=== PATIENT | female | born 1945 | race Hispanic/Latino ===

== ENCOUNTER 2018-09-25 21:58 | Inpatient (IN) | payer OTHER ==
[~2018-09-25] VITALS: Ht 154.9 cm; Wt 86.2 kg
[2018-09-25] MEDS ORDERED: SODIUM CHLORIDE 0.9% 1000ML 1,000 ML IV ONE (22:15)
[2018-09-25 23:04] LABS: BASOPHILS % 0.1 % (0.0-1.0); HEMATOCRIT 35.7 % (34.2-44.1); HEMOGLOBIN 11.9 g/dL (12.0-16.0); LYMPHOCYTES # (AUTO) 0.8 (1.0-3.2); LYMPHOCYTES % 6.2 % (18.0-39.1); MEAN CORPUSCULAR HEMOGLOBIN 30.8 pg (28-32); MEAN CORPUSCULAR HGB CONC 33.3 g/dL (31-35); MEAN CORPUSCULAR VOLUME 92.5 fL (81-99); MONOCYTES # (AUTO) 0.6 (0.2-0.8); MONOCYTES % 4.7 % (4.4-11.3); NEUTROPHILS % 88.6 % (38.7-80.0); PLATELET COUNT 150 x10e3/uL (140-360); RED BLOOD COUNT 3.86 x10e6/uL (3.6-5.1); RED CELL DISTRIBUTION WIDTH 12.4 % (11.7-14.4)
[2018-09-25 23:22] LABS: ALANINE AMINOTRANSFERASE 18 IU/L (0-55); ALBUMIN 3.1 g/dL (3.5-5.0); ALBUMIN/GLOBULIN RATIO 0.8 (0.8-2.0); ALKALINE PHOSPHATASE 65 IU/L (40-150); ANION GAP 13.1 mmol/L (8-16); BLOOD UREA NITROGEN 15 mg/dL (7-26); BUN/CREATININE RATIO 18 (6-25); CALCIUM 9.1 mg/dL (8.4-10.2); CARBON DIOXIDE 22 mmol/L (22-29); CHLORIDE 102 mmol/L (98-107); CREATINE KINASE 48 IU/L (29-168); CREATININE, SERUM 0.83 mg/dL (0.57-1.11); EST GLOMERULAR FILTRATION RATE > 60 ML/MIN (60-); GLUCOSE 164 mg/dL (74-118); POTASSIUM 3.1 mmol/L (3.5-5.1); SODIUM 134 mmol/L (136-145)
[2018-09-25 23:50] LABS: BILIRUBIN,URINE NEGATIVE (NEGATIVE); CLARITY,URINE CLOUDY (CLEAR); COLOR,URINE YELLOW (YELLOW); KETONES,URINE 1+ (NEGATIVE); LEUKOCYTE ESTERASE ,URINE MODERATE (NEGATIVE); NITRITE,URINE POSITIVE (NEGATIVE); PROTEIN,URINE DIPSTICK 2+ (NEGATIVE); URINE UROBILINOGEN 0.2 mg/dL (0.2 - 1)
--- NOTE | 2018-09-26 | Diagnostic Imaging Report ---
EXAMINATION: CHEST SINGLE (PORTABLE) INDICATION: ^FEVER ^[id number] ^2325 ^Y COMPARISON: None FINDINGS: AP view TUBES and LINES: None. LUNGS: Lungs are well inflated. Left basilar hazy opacification. PLEURA: No significant pleural effusion or pneumothorax. HEART AND MEDIASTINUM: The cardiomediastinal silhouette is unremarkable. BONES AND SOFT TISSUES: No acute osseous lesion. Soft tissues are unremarkable. UPPER ABDOMEN: No free air under the diaphragm. IMPRESSION: Lateral left basilar hazy opacification, concerning for pneumonia. Signed by: Dr. Ollie Granados MD on 09/25/2018 11:56 PM
[2018-09-26 00:23] LABS: BACTERIA,URINE MANY /HPF; EPITHELIAL CELLS,URINE FEW /LPF; WBC,URINE (MAN) >50 /HPF (0-5)
[2018-09-26] MEDS ORDERED: POTASSIUM CHLORIDE 20 MEQ TAB CR PO STA (01:08)
[2018-09-26] MEDS ORDERED: SODIUM CHLORIDE 0.9% 1000ML 1,000 ML IV ONE (01:15)
[2018-09-26] MEDS ORDERED: CEFTRIAXONE SOD 1 GM/NS 50 ML 50 ML IV SCH (01:15)
[2018-09-26] MEDS: ALBUTEROL SULF 0.083% NEB SOLN 3 ML NEB NEB SCH ×4 (01:15→12:20)
[2018-09-26] MEDS ORDERED: ONDANSETRON HCL INJ 2MG/ML 2ML 2 MG/ML VIAL IV PRN (01:15)
--- OUTSIDE RECORDS SUMMARY | 2018-09-26 01:21 | XMS REPORT ---
Author Author [facility] Address Unknown Phone Unavailable Care Team Providers Care Business Support Professional Name Role Phone Justine RAYA Unavailable Unavailable Problems This patient has no known problems. Allergies, Adverse Reactions, Alerts This patient has no known allergies or adverse reactions. Medications This patient has no known medications. Results Test Description Test Time Test Comments Text Results Atomic Results Result Comments CHEST SINGLE (PORTABLE) 2018-09-25 23:56:00 [place] [address] Patient Name: JONO GRULLON MR #: [id number] : 1945 Age/Sex: 73/F Req #: [id number] Adm Physician: Ordered by: STEWART RAYA MD Report #: [id number] Location: ER Room/Bed: Procedure: [id number] DX/CHEST SINGLE (PORTABLE) Exam Date: 09/25/18 Exam Time: 2324 REPORT STATUS: Signed EXAMINATION: CHEST SINGLE (PORTABLE) I NDICATION: FEVER [id number] 2325 Y COMPARISON: None FINDINGS: AP view TUBES and LINES: None. LUNGS: Lungs are well inflated. Left basilar hazy opacification. PLEURA: No significant pleural effusion or pneumothorax. HEART AND MEDIASTINUM: The cardiomediastinal silhouette is unremarkable. BONES AND SOFT TISSUES: No acute osseous lesion. Soft tissues are unremarkable. UPPER ABDOMEN: No free air under the diaphragm. IMPRESSION: Lateral left basilar hazy opacification, concerning for pneumonia. Signed by: Dr. Ollie Johnson MD on 09/25/2018 11:56 PM Dictated By: OLLIE JOHNSON MD Transcribed By: OJVANNY on 09/25/187 COPY TO: STEWART RAYA MD
[2018-09-26] MEDS: AZITHROMYCIN 500MG/NS 250 ML 250 ML IV SCH (02:52)
--- NOTE | 2018-09-26 03:45 | NUR ---
rapid response initiated due to patients rapid decline in neurological status and increase of temperature, rectal temp of 104 noted, tachycardia of 126, alert x1 and confused. daughter at bedside, dr phan ordered acetaminophen 1000mg iv x 1 and a stat abg. blood glucose check done within parameters, respiratory at bedside
[2018-09-26] MEDS ORDERED: ACETAMINOPHEN 1000 MG/100 ML IV STA (03:55)
[2018-09-26] MEDS ORDERED: ACETAMINOPHEN 1000 MG/100 ML 100 ML IV ONE (03:57)
[2018-09-26] MEDS: SODIUM CHLORIDE 0.9% 1000ML 1,000 ML IV SCH ×2 (04:15→12:00)
--- NOTE | 2018-09-26 04:31 | NUR ---
patients is improving and now able to follow commands, patient is now more alert and making needs known.
[2018-09-26 04:34] LABS: ABG HCO3 16 mmol/L (23-28); ABG PCO2 24 mmHg (41-51); ABG PH 7.44 (7.31-7.41); ABG PO2 67 mmHg (80-105)
--- NOTE | 2018-09-26 06:45 | NUR ---
report given in full to erin henderson rn
[2018-09-26] MEDS: IPRATROPIUM BROMIDE 0.02% 2.5 ML NEB NEB SCH ×2 (07:00→12:20)
--- NOTE | 2018-09-26 07:12 | NUR ---
RECEIVED PATIENT A/O X 3. ANSWERING QUESTION APPROPRIATELY. DENIES ANY COMPLAINTS. NORMAL SALINE INFUSING AT 125CC/HR VIA RIGHT 20 GUAGE AC. LIMB ALERT TO LEFT ARM. DAUGHTER AT BEDSIDE
[2018-09-26] MEDS ORDERED: SODIUM CHLORIDE 0.9% 1000ML 1,000 ML IV SCH (07:15)
[2018-09-26] MEDS ORDERED: SODIUM CHLORIDE 0.9% 1000ML 1,000 ML ONE (07:15)
--- NOTE | 2018-09-26 07:22 | NUR ---
LAB CALLED. PATIENT SCHEDULED FOR 6 AM CARDIACS
--- NOTE | 2018-09-26 07:40 | NUR ---
[employer] DRA[employer]ING TEACHER AT BEDSIDE OBTAINING 2ND SET OF CARDIAC ENZYMES
--- NOTE | 2018-09-26 08:14 | NUR ---
PATIENT ON 4TH LITER NORMAL SALINE. PRESSURE 79/40, HR 90. AFEBRILE
--- NOTE | 2018-09-26 08:15 | NUR ---
LAB TO COME DRAW LACTIC
[2018-09-26 08:23] LABS: CREATINE KINASE MB 6.7 ng/mL (0-5.0)
--- NOTE | 2018-09-26 08:51 | NUR ---
NOTIFIED MORGAN ESTRADA TROP I 3.
--- NOTE | 2018-09-26 08:52 | NUR ---
DR. RICH NOTIFIED FOR CARDIAC ENZYMES AND HYPOTENTION
--- NOTE | 2018-09-26 08:57 | NUR ---
REPEAT EKG COMPLETED. GIVEN TO DR. AUGUST
--- NOTE | 2018-09-26 09:13 | NUR ---
DR. COWART CALLED, LEFT MESSAGE. DR. RICH STATED, "HE IS BACK TODAY"
--- NOTE | 2018-09-26 09:21 | NUR ---
SPOKE WITH DR. COWART. HE IS AWARE OF BLOOD PRESSURE AND ELEVATED CARDIAC ENZYMYES. NO MEDICATION ORDERS. TELEPHONE ORDER FOR STAT ECHO, CONSULT JEROUDI AND PICC LINE PLACEMENT
--- NOTE | 2018-09-26 09:23 | NUR ---
SPOKE WITH SARATH RDA TO GET STAT ECHO
--- NOTE | 2018-09-26 09:26 | NUR ---
SPOKE WITH DR. Malika HERRERA REGARDING ELEVATED CARDIAC ENZMYES AND AND HYPOTENTION.
--- NOTE | 2018-09-26 09:45 | NUR ---
NOTIFIED RADIOLOGY TO CALL OUT PICC TEAM
--- NOTE | 2018-09-26 09:47 | NUR ---
MALCOLM WALL N.P. AT BEDSIDE FOR DR. Malika HERRERA. HE IS EVALUATING PATIENT. PICC CONSENT SIGNED
--- NOTE | 2018-09-26 10:01 | NUR ---
SPANISH MOSS PICKER AT BEDSIDE HR 87, BP 85/52 (83). FAMILY CONTINUALLY AT BEDSIDE UPDATED ON PATIENTS PLAN OF CARE
[2018-09-26 10:18] LABS: CHOL/HDL RATIO 2.7 (3.0-3.6)
--- NOTE | 2018-09-26 10:30 | NUR ---
NOTIFIED DR. COWART REGARDING CONTINUED HYPOTENTION, MAY NOW IN THE 50'S. ORDERS FOR LEVOPHED TO KEEP SYST >90. PATIENT AWAITING PICC
[2018-09-26 10:38] LABS: THYROID STIMULATING HORMONE 0.7 uIU/mL (0.350-4.940)
[2018-09-26] MEDS ORDERED: NOREPINEPHRINE 8 MG/D5W 250 ML 250 ML ONE (10:39)
[2018-09-26] MEDS: NOREPINEPHRINE INJ 4MG/4ML 8 MG in DEXTROSE 5% 250ML 250 ML IV SCH (10:45)
--- NOTE | 2018-09-26 11:00 | NUR ---
INCREASED LEVOPHED 7MCG/MIN (13.1ML) BP 82/48(60)
[2018-09-26] MEDS ORDERED: CETIRIZINE HCL10 MG PO (11:38)
[2018-09-26] MEDS ORDERED: FLUCONAZOLE150 MG (11:38)
[2018-09-26] MEDS ORDERED: LOSARTAN POTAS100 MG PO (11:38)
[2018-09-26] MEDS ORDERED: TAMOXIFEN CITRA20 MG PO (11:38)
[2018-09-26] MEDS ORDERED: CARVEDILOL3.125 MG PO (11:38)
[2018-09-26] MEDS ORDERED: OMEPRAZOLE20 MG PO (11:38)
[2018-09-26] MEDS ORDERED: CLOTRIMAZOLE-BE15 GM (11:38)
[2018-09-26] MEDS ORDERED: OXYBUTYNIN CHLO10 MG PO (11:38)
[2018-09-26] MEDS ORDERED: METRONIDAZOLE500 MG PO (11:38)
[2018-09-26] MEDS ORDERED: ATORVASTATIN CA20 MG PO (11:38)
--- NOTE | 2018-09-26 11:53 | NUR ---
PATIENT WAS ABLE TO STAND UP. C/O OF DIZZINESS. TRANSFERED TO HOSPITAL BED. CHANGED DIAPER, SATURATED WITH URINE. NO SKIN BREAKDOWN ONLY ABLE TO TAKE BP ON RIGHT ARM. RIGHT AC PIV SITE WITH BLOOD
--- NOTE | 2018-09-26 13:00 | NUR ---
BP 105/58 REDUCED LEVOPHED TO 5MCG/MIN
--- NOTE | 2018-09-26 13:18 | NUR ---
DR. COWART IN EMERGENCY ROOM TO EVALUATE PATIENT
[2018-09-26] MEDS ORDERED: VANCOMYCIN 1GM/NS 250 ML 250 ML IV ONE (13:45)
[2018-09-26] MEDS ORDERED: METRONIDAZOLE 500MG/NS 100ML 100 ML IV SCH (14:00)
--- NOTE | 2018-09-26 14:23 | NUR ---
PICC TEAM NURSE AT BEDSIDE AT THIS TIME, INFORMED PRIMARY NURSE MORGAN ESTRADA.
--- NOTE | 2018-09-26 14:26 | NUR ---
BP 111/56. DECREASED LEVOPHED TO 3MCG/MIN (5.6 ML)
--- NOTE | 2018-09-26 15:18 | NUR ---
BP 120/64. CUFF ON LEFT LEG LEVOPHED REDUCED TO 2MCG/MIN (3.7 ML)
--- NOTE | 2018-09-26 15:18 | NUR ---
PICC COMPLETED. PLACED IN RIGHT UPPER ARM. BP PLACED ON LEFT LEG. BP 120/64
--- NOTE | 2018-09-26 15:45 | NUR ---
RADIOLOGY AT BEDSIDE AT THIS TIME FOR PICC LINE PLACEMENT CXR AT THIS TIME.
--- NOTE | 2018-09-26 15:53 | Diagnostic Imaging Report ---
Examination: Single AP view of the chest. COMPARISON: Earlier 09/25/2018 INDICATION: PICC placement DISCUSSION: Interval placement of a right upper extremity PICC. The tip terminates over the mid superior vena cava. Patchy opacity in the left lung base is unchanged. No new consolidations. Stable cardiomediastinal contour. No acute osseous abnormality. IMPRESSION: Interval placement of right upper extremity PICC, appropriately positioned as described. Otherwise no significant interval change relative to 09/25/2018. Signed by: Dr. Curtis Saunders M.D. on 09/26/2018 3:49 PM
--- NOTE | 2018-09-26 16:10 | NUR ---
LEVOPHED DRIP TITRATED TO 1 MCG/MIN 1.9 ML/HR AT THIS TIME.
--- NOTE | 2018-09-26 16:15 | NUR ---
PICC LINE OKAY TO USE PER RADIOLOGY POST PROCEDURE X-RAY REPORT, STARTING ABX VIA LINE. SEE eMAR.
--- NOTE | 2018-09-26 16:30 | NUR ---
BP 122/59. CUFF ON LEFT LEG LEVOPHED OFF
--- NOTE | 2018-09-26 16:50 | Consultation ---
DATE OF CONSULTATION: REASON FOR CONSULTATION: Elevated troponin. CHIEF COMPLAINT: Fevers, chills, and cough. HISTORY OF PRESENT ILLNESS: This is a 73-year-old female with history of hypertension, hyperlipidemia, uterine prolapse, and breast CA. The patient presents to [facility] ER with apparent complaints of fevers, chills, cough, and temperature over 104. However, also was noted the patient was hypotensive on admission, has received fluids from several liters of fluid. Labs were noted, which showed that the troponin is 3.9, so Cardiology was consulted. The patient is seen in the ER with family at the bedside. The patient reports cough, chills, and fever for the past several days. Denies any sick contacts. The patient denies any chest pains, any shortness of breath. EKG was noted, no changes suggestive of acute event. PAST MEDICAL HISTORY: Hypertension, hyperlipidemia, uterine prolapse, and breast CA. PAST SURGICAL HISTORY: Cholecystectomy and left lumpectomy. SOCIAL HISTORY: She is single. She is a retired accounts receivable department. She denies any alcohol or tobacco use. FAMILY HISTORY: Mother in the age of 72, apparently with a history of Parkinson. Father in his 80s, unknown history. She has one sister, who is alive, apparently she has a history of atrial fibrillation. HOME MEDICATIONS: Include losartan 100 mg once a day, atorvastatin daily, oxybutynin 10 mg daily, fish oil, and tamoxifen. ALLERGIES: NO KNOWN ALLERGIES. REVIEW OF SYSTEMS: GENERAL: Denies any weight changes. However, positive for fatigue, weakness, fevers, and chills. SKIN LADD: No rashes or sores reported. HEENT: Denies any nausea, vomiting, vision changes, blurred vision, double vision, or epistaxis. Positive for sore throat. CARDIAC: Denies any chest pains or shortness of breath; however, positive for dyspnea on exertion. Denies any orthopnea, PND, or any lower extremity edema. RESPIRATORY: Positive for cough and secretions. Denies any hemoptysis. GI: Reports poor appetite past several days. Denies any nausea, vomiting, diarrhea, constipation, melena, or hematochezia. URINARY: Positive for frequency and urgency. Denies any hematuria or any dysuria. VASCULAR: Denies any lower extremity edema. MUSCULOSKELETAL: Denies any muscle weakness; however, positive for generalized joint pains. NEUROLOGIC: Denies any tremors, weakness, paralysis, fainting, blackouts, or seizures. HEMATOLOGY: Denies any bruising or anemia. ENDOCRINE: Denies any heat or cold intolerance, any polyuria, polydipsia, or polyphagia. PHYSICAL EXAMINATION: VITAL SIGNS: Height 62 inches, weight 165 pounds, temperature 98.4, pulse 95, respiratory rate 18, blood pressure 85/49, and pulse ox 100% on 2 L nasal cannula. GENERAL: Appears stated age, reliable informant, and in no obvious distress. SKIN LADD: No rashes or bruises noted. HEENT: Normocephalic. Pupils are equal and reactive. Extraocular movements are intact. Trachea midline. No JVD. No thyromegaly. Oral mucosa pink. HEART: Regular rate and rhythm. No murmurs, gallops, or clicks. PMI 4th 5th intercostal space. LUNGS: Rhonchi noted in the left lung field. Good airway entry. ABDOMEN: Soft, nontender, and nondistended. No organomegaly noted. MUSCULOSKELETAL: Good muscle strength throughout. VASCULAR: +2 bilateral radial pulses, +1 DP, PT pulses bilaterally. NEUROLOGIC: Cranial nerves II through XII seem intact. LABORATORY DATA: Sodium 134, potassium 3.1, chloride 102, BUN 15, and creatinine 0.8. Troponin initial 0.008, 3.9. Hematology; white count 13.5, hemoglobin 11, hematocrit 35, and platelets 150. UA showing moderate leukocyte esterase, white count greater than 50,000 and many bacteria. Chest x-ray showing hazy opacifications. EKG showing normal sinus rhythm. ASSESSMENT AND PLAN: 1. Severe sepsis. 2. Troponin leak secondary to severe sepsis. 3. Hyperlipidemia. 4. History of hypertension. 5. History of breast cancer, status post lumpectomy. PLAN: 1. The patient presents with cough, fevers, chills, and temperature of 104 per patient on x-ray with pneumonia, and the patient with severe sepsis. Troponin leak secondary to sepsis. The patient denies any anginal symptoms. EKG without changes suggestive of acute event. 2. We will go ahead and get an echo to evaluate heart function and structure. 3. We will check a TSH and lipid panel. 4. Antibiotics. The patient has been initiated on antibiotic therapy and receiving fluids secondary to her hypotension. 5. We will continue to monitor the patient and adjust cardiac therapy as clinical course dictates. Long discussion with the patient and family members at bedside. Dictated by Curtis Porter, JEM Tahir Charlton MD DC/AIDAN /[id number]
[2018-09-26 16:51] LABS: CREATINE KINASE MB 12.9 ng/mL (0-5.0)
--- NOTE | 2018-09-26 16:57 | NUR ---
NOTIFIED PER LAB. TROPONIN 2.9
[2018-09-26] MEDS ORDERED: ENOXAPARIN SOD INJ 40 MG/0.4 ML SYR SC SCH (17:00)
--- NOTE | 2018-09-26 17:30 | NUR ---
SPOKE WITH DR. COWART. HE IS AWARE OF PATIENT BEING OFF LEVOPHED, INCREASING TEMP AND BP AND 3RD SET OF CARDIAC ENZMYES. BP 149/70, NO TREATMENT TROPONIN 2.9, AND AWARE THEY ARE COMING DOWN SINCE 2ND SET. TEMP 100.1, GIVE TYLENOL TRANSFER LEVEL CARE FROM ICU TO MED/TELE
[2018-09-26] MEDS: ACETAMINOPHEN 325 MG TAB PO PRN (17:55)
[2018-09-26] MEDS: CEFEPIME 1GM/NS 0.9% 50 ML 50 ML IV SCH (17:55)
[2018-09-26] MEDS: ALBUTEROL/IPRATROPIUM 3 ML NEB NEB SCH ×2 (18:00→21:00)
--- NOTE | 2018-09-26 18:40 | NUR ---
MULTIPLE DIAPER CHANGES. PATIENT AMBULATED TO BATHROOM WITH ASSIST. TRIED TO HOLD OFF HAVING A BOWEL MOVEMENT TILL FAMILY ARRIVED. SHE IS NOW INCONTINENT OF STOOL
--- NOTE | 2018-09-26 19:00 | NUR ---
BEDSIDE REPORT TO MUKESH Quigley
[2018-09-26] MEDS: ATORVASTATIN 20 MG TAB PO SCH (20:18)
[2018-09-26] MEDS: METRONIDAZOLE 500MG/NS 100ML 100 ML IV SCH (20:18)
--- NOTE | 2018-09-26 22:21 | NUR ---
SPOKE TO DR COWART REGARDING PATIENTS CURRENT BP OF 86/52, DISCUSSED IN DETAIL PATIENTS MEDICAL COURSE THROUGHT DAY, PER PREVIOUS RN AND DAUGTHER AT BEDSIDE PATIENT ATE DINNER AND HAD GOOD FLUID AND FOOD INTAKE ALL DAY. THIS RN EXPRESSED CONCERN IN BP. RECIEVED ORDER FOR 1L BOLUS OF LACTATED RINGERS AND MAY TRANSFER TO FLOOR IF SBP IS ABOVE 100. CALL BACK MD IF INTERVENTIONS FAIL
[2018-09-26] MEDS ORDERED: LACTATED RINGER'S 1,000 ML IV ONE (22:30)
[2018-09-27] VITALS (23 sets, daily range): BP systolic 87–153; BP diastolic 54–87
[2018-09-27] MEDS: CEFEPIME 1GM/NS 0.9% 50 ML 50 ML IV SCH ×4 (02:15→21:32)
[2018-09-27] MEDS: AZITHROMYCIN 500MG/NS 250 ML 250 ML IV SCH (02:42)
[2018-09-27 05:05] LABS: BASOPHILS % 0.1 % (0.0-1.0); EOSINOPHILS % 0.1 % (0.0-6.0); HEMATOCRIT 27.2 % (34.2-44.1); HEMOGLOBIN 8.8 g/dL (12.0-16.0); LYMPHOCYTES # (AUTO) 1.2 (1.0-3.2); LYMPHOCYTES % 13.6 % (18.0-39.1); MEAN CORPUSCULAR HEMOGLOBIN 30.7 pg (28-32); MEAN CORPUSCULAR HGB CONC 32.4 g/dL (31-35); MEAN CORPUSCULAR VOLUME 94.8 fL (81-99); MONOCYTES # (AUTO) 0.5 (0.2-0.8); MONOCYTES % 5.7 % (4.4-11.3); NEUTROPHILS # (AUTO) 7.2 (2.1-6.9); NEUTROPHILS % 79.9 % (38.7-80.0); PLATELET COUNT 95 x10e3/uL (140-360); RED BLOOD COUNT 2.87 x10e6/uL (3.6-5.1)
[2018-09-27] MEDS: METRONIDAZOLE 500MG/NS 100ML 100 ML IV SCH ×4 (05:24→22:10)
[2018-09-27 05:39] LABS: ANION GAP 8.4 mmol/L (8-16); BLOOD UREA NITROGEN 11 mg/dL (7-26); BUN/CREATININE RATIO 17 (6-25); CALCIUM 7.7 mg/dL (8.4-10.2); CARBON DIOXIDE 18 mmol/L (22-29); CHLORIDE 112 mmol/L (98-107); CHOL/HDL RATIO 3.4 (3.0-3.6); CHOLESTEROL 84 MD/DL (0-199); CREATININE, SERUM 0.63 mg/dL (0.57-1.11); EST GLOMERULAR FILTRATION RATE > 60 ML/MIN (60-); GLUCOSE 99 mg/dL (74-118); HDL CHOLESTEROL 25 MG/DL (40-60); LDL CHOLESTEROL 42 MG/DL (60-130); POTASSIUM 3.4 mmol/L (3.5-5.1); SODIUM 135 mmol/L (136-145); TRIGLYCERIDES 85 MG/DL (0-149)
--- NOTE | 2018-09-27 05:51 | Diagnostic Imaging Report ---
EXAMINATION: CHEST SINGLE (PORTABLE) INDICATION: ^PNA ^[id number] ^0420 COMPARISON: 09/26/2018 FINDINGS: AP view TUBES and LINES: Stable right PICC. LUNGS: Limited by low lung volumes and body habitus. Increased vascular congestion and perihilar opacities. PLEURA: No significant pleural effusion or pneumothorax. HEART AND MEDIASTINUM: The cardiomediastinal silhouette is unremarkable. BONES AND SOFT TISSUES: No acute osseous lesion. Soft tissues are unremarkable. UPPER ABDOMEN: No free air under the diaphragm. IMPRESSION: Limited as above. Increased central vascular congestion, accentuated by low lung volumes. Increased right infrahilar opacification, likely atelectasis. Underlying pneumonia cannot be excluded. Signed by: Dr. Ollie Granados MD on 09/27/2018 5:47 AM
[2018-09-27] MEDS ORDERED: SODIUM CHLORIDE 0.9% 1000ML 1,000 ML IV SCH (07:15)
[2018-09-27] MEDS: ALBUTEROL/IPRATROPIUM 3 ML NEB NEB SCH ×4 (07:30→18:55)
[2018-09-27] MEDS ORDERED: TAMOXIFEN CITRATE 20 MG PO SCH (09:00)
[2018-09-27] MEDS: TAMOXIFEN CITRATE 10 MG TAB PO SCH (09:20)
[2018-09-27] MEDS: NOREPINEPHRINE INJ 4MG/4ML 8 MG in DEXTROSE 5% 250ML 250 ML IV SCH (09:56)
[2018-09-27] MEDS ORDERED: POTASSIUM CHLORIDE 20 MEQ TAB CR PO STA (10:36)
[2018-09-27] MEDS ORDERED: MAGNESIUM SULFATE 2GM/50ML 50 ML IV ONE (10:45)
[2018-09-27] MEDS ORDERED: POTASSIUM CHLORIDE 10MEQ EA PO NR (11:00)
[2018-09-27] MEDS: FAMOTIDINE 20 MG TAB PO SCH (11:45)
--- NOTE | 2018-09-27 14:13 | NUR ---
WOUND CARE PUP SCREEN Tai Score: 16 PUP: MODERATE LOS: 10 HRS Age: 73 VISCO Mattress HOB < / = 45 Degrees Patient Position: Patient able & demonstrated repositioning self. PATIENT VISIT / SKIN CHECK: No Pressure Ulcers Identified. RECOMMENDATION: - Continue Moderate PUP Addendum: 09/27/18 at 1413 by Garland Moseley RN Amended: Links added.
[2018-09-27] MEDS ORDERED: POTASSIUM CHLORIDE 20 MEQ TAB CR PO NR (14:30)
[2018-09-27] MEDS: ACETAMINOPHEN 325 MG TAB PO PRN (15:27)
[2018-09-27] MEDS: ATORVASTATIN 20 MG TAB PO SCH (20:43)
--- NOTE | 2018-09-27 21:16 | NUR ---
Report given to Louisa MORA. Patient transferred to 206 with all belongings at 2105 via WC with magy Alfredo. No acute signs of distress noted. Daughter at bedside.
[2018-09-27] MEDS ORDERED: SODIUM CHLORIDE 0.9% 250ML 250 ML ONE (21:25)
[2018-09-28] VITALS (8 sets, daily range): BP systolic 122–164; BP diastolic 59–78
[2018-09-28] MEDS: AZITHROMYCIN 500MG/NS 250 ML 250 ML IV SCH (01:21)
[2018-09-28] MEDS: ACETAMINOPHEN 325 MG TAB PO PRN ×2 (01:21→17:03)
[2018-09-28 04:59] LABS: BASOPHILS % 0.2 % (0.0-1.0); EOSINOPHILS % 0.3 % (0.0-6.0); HEMATOCRIT 27.4 % (34.2-44.1); HEMOGLOBIN 9.1 g/dL (12.0-16.0); LYMPHOCYTES # (AUTO) 0.9 (1.0-3.2); LYMPHOCYTES % 14.7 % (18.0-39.1); MEAN CORPUSCULAR HEMOGLOBIN 30.6 pg (28-32); MEAN CORPUSCULAR HGB CONC 33.2 g/dL (31-35); MEAN CORPUSCULAR VOLUME 92.3 fL (81-99); MONOCYTES # (AUTO) 0.5 (0.2-0.8); MONOCYTES % 7.9 % (4.4-11.3); NEUTROPHILS # (AUTO) 4.5 (2.1-6.9); NEUTROPHILS % 76.2 % (38.7-80.0); PLATELET COUNT 112 x10e3/uL (140-360); RED BLOOD COUNT 2.97 x10e6/uL (3.6-5.1); RED CELL DISTRIBUTION WIDTH 12.7 % (11.7-14.4)
[2018-09-28 05:13] LABS: INR 1.01; PROTHROMBIN TIME 13.8 seconds (11.9-14.5)
[2018-09-28] MEDS: CEFEPIME 1GM/NS 0.9% 50 ML 50 ML IV SCH (05:17)
[2018-09-28 05:24] LABS: ALANINE AMINOTRANSFERASE 17 IU/L (0-55); ALBUMIN 2.1 g/dL (3.5-5.0); ALBUMIN/GLOBULIN RATIO 0.7 (0.8-2.0); ALKALINE PHOSPHATASE 58 IU/L (40-150); ANION GAP 7.4 mmol/L (8-16); BLOOD UREA NITROGEN 7 mg/dL (7-26); BUN/CREATININE RATIO 11 (6-25); CARBON DIOXIDE 21 mmol/L (22-29); CHLORIDE 111 mmol/L (98-107); CREATININE, SERUM 0.61 mg/dL (0.57-1.11); EST GLOMERULAR FILTRATION RATE > 60 ML/MIN (60-); GLUCOSE 106 mg/dL (74-118); POTASSIUM 3.4 mmol/L (3.5-5.1); SODIUM 136 mmol/L (136-145)
[2018-09-28] MEDS: ALBUTEROL/IPRATROPIUM 3 ML NEB NEB SCH ×4 (06:00→20:05)
[2018-09-28] MEDS: METRONIDAZOLE 500MG/NS 100ML 100 ML IV SCH (06:13)
[2018-09-28] MEDS: TAMOXIFEN CITRATE 10 MG TAB PO SCH (08:31)
[2018-09-28] MEDS: FAMOTIDINE 20 MG TAB PO SCH (08:31)
[2018-09-28] MEDS ORDERED: POTASSIUM CHLORIDE 20 MEQ TAB CR PO NR (09:30)
[2018-09-28] MEDS ORDERED: ASPIRIN 325 MG TAB PO SCH (11:00)
[2018-09-28] MEDS ORDERED: POTASSIUM CHLORIDE 20 MEQ TAB CR PO SCH (11:30)
--- NOTE | 2018-09-28 11:43 | Diagnostic Imaging Report ---
Exam: KUB - 2 views Clinical History: Nausea. Comparison: None. Findings: Nonobstructive bowel gas pattern. No evidence of free intraperitoneal air. No evidence of abnormal calcification. No acute bony abnormality. Mild degenerative changes of the lumbar spine. Pessary device is noted. Impression: No acute radiographic abnormality. Signed by: Dr. Vazquez Cervantes MD on 09/28/2018 11:40 AM
[2018-09-28] MEDS: LACTOBACILLUS ACIDOPHILUS CAPSULE PO SCH ×3 (11:53→20:48)
[2018-09-28] MEDS ORDERED: ASPIRIN 81 MG ENTERIC COATED PO SCH (12:00)
[2018-09-28] MEDS: CEFTRIAXONE SOD 1 GM/NS 50 ML 50 ML IV SCH (12:01)
[2018-09-28] MEDS ORDERED: ONDANSETRON HCL 4 MG ORAL DISINTEGRATING TAB PO PRN (13:30)
--- NOTE | 2018-09-28 19:00 | NUR ---
Received patient from day nurse, patient alert and oriented x3. patient made aware of the plan of care for the night, patient verbalized understanding. patient is currently stable will continue to monitor.
[2018-09-28] MEDS: ATORVASTATIN 20 MG TAB PO SCH (20:48)
[2018-09-29] VITALS (7 sets, daily range): BP systolic 151–171; BP diastolic 71–97
[2018-09-29 05:00] LABS: BASOPHILS % 0.2 % (0.0-1.0); EOSINOPHILS % 0.7 % (0.0-6.0); HEMOGLOBIN 9.7 g/dL (12.0-16.0); LYMPHOCYTES # (AUTO) 0.9 (1.0-3.2); MEAN CORPUSCULAR HEMOGLOBIN 30.1 pg (28-32); MEAN CORPUSCULAR HGB CONC 33.4 g/dL (31-35); MEAN CORPUSCULAR VOLUME 90.1 fL (81-99); MONOCYTES # (AUTO) 0.4 (0.2-0.8); MONOCYTES % 9.2 % (4.4-11.3); NEUTROPHILS # (AUTO) 3.1 (2.1-6.9); NEUTROPHILS % 68.2 % (38.7-80.0); PLATELET COUNT 128 x10e3/uL (140-360); RED BLOOD COUNT 3.22 x10e6/uL (3.6-5.1); RED CELL DISTRIBUTION WIDTH 12.5 % (11.7-14.4)
[2018-09-29 05:30] LABS: ALANINE AMINOTRANSFERASE 21 IU/L (0-55); ALBUMIN 2.3 g/dL (3.5-5.0); ALKALINE PHOSPHATASE 57 IU/L (40-150); ANION GAP 9.5 mmol/L (8-16); BILIRUBIN,DIRECT 0.3 mg/dL (0.0-0.5); BLOOD UREA NITROGEN 6 mg/dL (7-26); BUN/CREATININE RATIO 10 (6-25); CALCIUM 8.2 mg/dL (8.4-10.2); CARBON DIOXIDE 24 mmol/L (22-29); CHLORIDE 107 mmol/L (98-107); CREATININE, SERUM 0.59 mg/dL (0.57-1.11); EST GLOMERULAR FILTRATION RATE > 60 ML/MIN (60-); GLUCOSE 98 mg/dL (74-118); LIPASE 19 U/L (8-78); POTASSIUM 3.5 mmol/L (3.5-5.1); SODIUM 137 mmol/L (136-145)
[2018-09-29] MEDS: ALBUTEROL/IPRATROPIUM 3 ML NEB NEB SCH (06:59)
[2018-09-29] MEDS: LACTOBACILLUS ACIDOPHILUS CAPSULE PO SCH ×3 (09:00→21:00)
[2018-09-29] MEDS: FAMOTIDINE 20 MG TAB PO SCH (09:39)
[2018-09-29] MEDS: TAMOXIFEN CITRATE 10 MG TAB PO SCH (09:39)
--- NOTE | 2018-09-29 11:58 | NUR ---
IMM letter delivered and explained to pt. She verbalized understanding. Signed copy placed in chart. Copy to pt's transition of care folder. CM business card left for any questions/concerns. CM information also written on white board.
[2018-09-29] MEDS: CEFTRIAXONE SOD 1 GM/NS 50 ML 50 ML IV SCH (12:09)
[2018-09-29] MEDS ORDERED: ALBUTEROL/IPRATROPIUM 3 ML NEB NEB PRN (12:45)
[2018-09-29] MEDS ORDERED: LEVOFLOXACIN 500 MG TAB PO SCH (12:45)
[2018-09-29] MEDS ORDERED: POTASSIUM CHLORIDE 20 MEQ TAB CR PO ONE (16:00)
[2018-09-29] MEDS: CARVEDILOL 3.125 MG TAB PO SCH (17:11)
--- NOTE | 2018-09-29 19:49 | NUR ---
Received patient lying in bed in no acute distress, patient is alert and oriented, safety and fall precautions mantained as per hospital protocol: bed in lowest position and locked, needed items beside bed and call brown placed close to patient, patient instructed to use it to call nurses for any assisstance needed patient verbalized understanding.
[2018-09-29] MEDS: ATORVASTATIN 20 MG TAB PO SCH (22:00)
[2018-09-30 00:16] VITALS: BP 167/83
[2018-09-30 05:56] VITALS: BP 170/80
--- NOTE | 2018-09-30 06:25 | NUR ---
Made Dr. Everett aware of patients bp and ordered to administer morning bp meds now.
[2018-09-30] MEDS: CARVEDILOL 3.125 MG TAB PO SCH (06:28)
--- NOTE | 2018-09-30 06:45 | NUR ---
Patient condition throughout the night was stable, patient endorsed to next shift for continuity of care.
[2018-09-30 08:00] VITALS: BP 171/82
[2018-09-30] MEDS: TAMOXIFEN CITRATE 10 MG TAB PO SCH (08:46)
[2018-09-30 08:47] VITALS: BP 171/82
[2018-09-30] MEDS: LACTOBACILLUS ACIDOPHILUS CAPSULE PO SCH (08:49)
[2018-09-30] MEDS ORDERED: LORATADINE 10 MG TAB PO SCH (09:00)
[2018-09-30] MEDS ORDERED: NON-FORMULARY MEDICATION (Cetirizine Hcl 10 MG) PO SCH (09:00)
[2018-09-30] MEDS ORDERED: CARVEDILOL 3.125 MG TAB PO SCH (09:00)
[2018-09-30] MEDS ORDERED: LOSARTAN POTASSIUM 100 MG TAB PO SCH (09:00)
[2018-09-30] MEDS ORDERED: ASPIRIN 81 MG CHEW TAB PO SCH (09:00)
[2018-09-30] MEDS ORDERED: OXYBUTYNIN CHLORIDE XL 5 MG TAB PO SCH ×2 (09:00→21:00)
--- NOTE | 2018-09-30 11:30 | NUR ---
Patient's blood pressure is 190/89. Contacting Dr. Saravia contacted.
--- NOTE | 2018-09-30 11:56 | NUR ---
Dr. Saravia here to see the patient. Made him aware of elevated blood pressure continuing from this morning. Orders received. Per Dr. Saravia stated blood pressure must be lower than 170 SBP in order to discharge home.
[2018-09-30 12:00] VITALS: BP 190/89
[2018-09-30] MEDS ORDERED: NIFEDIPINE CR 30 MG TAB PO SCH (12:15)
--- NOTE | 2018-09-30 12:32 | NUR ---
Procardia administered at this time.
[2018-09-30] MEDS ORDERED: LEVOFLOXACIN 500 MG TAB PO SCH (12:45)
--- NOTE | 2018-09-30 13:16 | NUR ---
Patient's blood pressure is now 169/81. Will proceed with discharge per orders from Dr. Saravia.
[2018-09-30] MEDS ORDERED: ZOFRAN4 MG SL (13:33)
[2018-09-30] MEDS ORDERED: LEVAQUIN500 MG PO (13:35)
[2018-09-30] MEDS ORDERED: ALBUTEROL0.63 MG/3 INH (13:35)
[2018-09-30] MEDS ORDERED: PROCARDIA XL30 MG PO (13:36)
--- NOTE | 2018-10-01 00:14 | Discharge Summary ---
PRIMARY CARE DOCTOR: Dr. Jose Doherty. FINAL DIAGNOSES: Septic shock, present on admission due to urinary tract infection and pneumonia with E. coli septicemia. SECONDARY DIAGNOSES: 1. Type 2 myocardial infarction. 2. Hypertension. 3. Left breast cancer. 4. Thrombocytopenia, recovering. CONSULTANTS: Luisa Charlton MD, Cardiology. PROCEDURES AND STUDIES PERFORMED: 1. Echocardiogram was fairly unremarkable. 2. PICC line placement. HISTORY: Per [facility] HOSPITAL COURSE: The patient was admitted. Initially, patient was briefly on Levophed. Otherwise, she did well, initially broad-spectrum IV antibiotics were given. Initially, patient also had metabolic encephalopathy due to sepsis. The patient improved. Blood culture shows E. coli, sensitive to Levaquin. The patient will go home on Levaquin for 9 more days to complete a 2-week course. As far as her type 2 SD, the patient was evaluated by Cardiology, stress test was offered; however, patient would rather follow up with her shallot packer. The patient was seen and examined today. It took 35 minutes total to discharge this patient. I have updated her family members and also her primary care doctor. CONDITION ON DISCHARGE: Improved. DISCHARGE MEDICATIONS: Please see medication reconciliation form. Vandanaching MD AKIKO Rae/AIDAN /[id number] cc: [facility]
== END 2018-09-30 14:37 | disposition home or self-care (01) | DRG 871 ==
LOC: ER 21:58 → ERHOLD 09-26 01:18 → ICU 09-27 00:50 → MED/SURG2 09-27 20:57
PROVIDERS: ADMIT Internal Medicine; ATTEND Internal Medicine
PROC: 02HV33Z Insertion of Infusion Device into Superior Vena Cava, Percutaneous Approach (ICD-10-PCS; principal; 2018-09-26)
DX: A41.51 Sepsis due to Escherichia coli [E. coli] (principal); I21.A1 Myocardial infarction type 2; R65.21 Severe sepsis with septic shock; J15.9 Unspecified bacterial pneumonia; N39.0 Urinary tract infection, site not specified; K52.1 Toxic gastroenteritis and colitis; D69.6 Thrombocytopenia, unspecified; E87.6 Hypokalemia; T36.95XA Adverse effect of unspecified systemic antibiotic, initial encounter
CPT/HCPCS: 36415; 36569; 36600; 71045; 74018; 80048; 80053; 80061; 80076; 81001; 82550; 82553; 82805; 82948; 83036; 83605; 83690; 83735; 84443; 84484; 85025; 85610; 87040; 87071; 87186; 87205; 87400; 93005; 93306; 94640; 99284; J0456; J0692; J0696; J1650; J3370; J3475; J7030; J7050; J7121